=== PATIENT | female | born 1995 | race Caucasian/White ===

== ENCOUNTER 2018-09-06 10:43 | Emergency (ER) | payer OTHER ==
[~2018-09-06] VITALS: Ht 154.9 cm; Wt 45.8 kg
[2018-09-06] MEDS ORDERED: JUNEL FE 1-201 EACH PO (10:48)
[2018-09-06 12:09] LABS: URINE BILIRUBIN NEGATIVE (Negative); URINE BLOOD TRACE (Negative); URINE CLARITY CLEAR; URINE COLOR YELLOW; URINE GLUCOSE-RANDOM* NEGATIVE (Negative); URINE KETONES NEGATIVE (Negative); URINE LEUKOCYTES-REFLEX 2+ (Negative); URINE NITRITE-REFLEX POSITIVE (Negative); URINE PROTEIN (DIPSTICK) TRACE (Negative); URINE SPECIFIC GRAVITY 1.025 (1.005-1.035); URINE UROBILINOGEN 0.2 E.U./dl (0.2-1.0)
[2018-09-06 12:20] LABS: CASTS None Seen /LPF (None Seen); SQUAMOUS >10 Many /LPF (0-3)
[2018-09-06 12:21] LABS: URINE WBC-REFLEX >25 Many /HPF (0-5)
[2018-09-06 12:22] LABS: BACTERIA-REFLEX >30 Many /HPF (None Seen); CRYSTALS None Seen /LPF (None Seen); URINE RBC 0-2 Rare /HPF (0-2)
[2018-09-06] MEDS ORDERED: ROBAXIN500 MG PO (12:31)
[2018-09-06] MEDS ORDERED: BACTRIM DS TAB1 EACH PO (12:31)
[2018-09-06] MEDS ORDERED: NAPROXEN375 MG PO (12:31)
[2018-09-06 12:45] VITALS: BP 103/47
== END 2018-09-06 12:46 | disposition home or self-care (01) ==
LOC: ER 10:43
PROVIDERS: Emergency Medicine
DX: N39.0 Urinary tract infection, site not specified (principal); M62.838 Other muscle spasm; F17.210 Nicotine dependence, cigarettes, uncomplicated